=== PATIENT | female | born 1965 | race Caucasian/White ===

== ENCOUNTER 2020-06-27 12:40 | Inpatient (IN) ==
[2020-06-27] MEDS ORDERED: LORazepam 2 MG/4 ML VIAL IV STA (13:01)
[2020-06-27] MEDS ORDERED: MULTI-VITAMIN INFUSION 10 ML, THIAMINE HCL 100 MG, FOLIC ACID 1 MG in SODIUM CHLORIDE 0... IV ONE (13:01)
[2020-06-27 13:38] LABS: Basophils # (auto) 0.01 K/uL (0-0.2); Basophils % (auto) 0.1 %; Eosinophils # (auto) 0.05 K/uL (0-0.5); Eosinophils % (auto) 0.6 %; Hematocrit (blood only) 39.3 % (37-47); Hemoglobin 13.3 g/dL (12.0-16.0); Immature Granulocytes # (auto) 0.02 K/uL (0.00-0.02); Immature Granulocytes % (auto) 0.3 %; Lymphocytes # (auto) 1.66 K/uL (1.2-3.4); Lymphocytes % (auto) 21.4 %; Mean Corpuscular Hemoglobin 34.9 pg (25-34); Mean Corpuscular Hgb Conc 33.8 g/dL (32-36); Mean Corpuscular Volume 103.1 fL (80-100); Mean Platelet Volume 9.8 fL (7.4-10.4); Monocytes # (auto) 0.44 K/uL (0.11-0.59); Monocytes % (auto) 5.7 %; Neutrophils # (auto) 5.56 K/uL (1.4-6.5); Neutrophils % (auto) 71.9 %; Platelet Count 135 K/uL (130-400); RDW Coefficient of Variation 14.2 % (11.5-14.5); RDW Standard Deviation 53.4 fL (36.4-46.3); Red Blood Count 3.81 M/uL (4.2-5.4); White Blood Count 7.74 K/uL (4.8-10.8)
[2020-06-27 13:47] LABS: INR 1.1 (0.9-1.1); Partial Thromboplastin Ratio 0.9; Partial Thromboplastin Time 24.5 Seconds (21.0-31.0); Prothrombin Time 11.7 Seconds (9.0-12.0)
--- NOTE | 2020-06-27 13:49 | XRay Report ---
XR chest 1V portable HISTORY: 54 years-old Female Chest Pain acute atypical chest pain COMPARISON: None TECHNIQUE: Portable AP view of the chest FINDINGS: Cardiomediastinal and hilar silhouettes are within normal limits. There is no pneumothorax, pleural e ffusion, airspace consolidation or overt pulmonary edema. Healed remote angulated mid right clavicula r fracture. Bones of the chest appear grossly intact. IMPRESSION: No acute process. ACT 112: Negative or not required by law. The above report was generated using voice recognition software. It may contain grammatical, syntax o r spelling errors. Electronically signed by: Wilder Leger M.D. 06/27/2020 1:48 PM
[2020-06-27 13:55] LABS: Alanine Aminotransferase 29 U/L (12-78); Albumin Level 3.8 gm/dl (3.4-5.0); Aspartate Aminotransferase 48 U/L (15-37); BUN Creatinine Ratio 12.5 (10-20); Bilirubin Direct 0.5 mg/dl (0-0.2); Blood Urea Nitrogen 10 mg/dl (7-18); Calcium 9.5 mg/dl (8.5-10.1); Carbon Dioxide 22 mmol/L (21-32); Chloride 97 mmol/L (98-107); Creatinine Clr Calc Pharmacy 69.8 ml/min; Est GFR (African American) 94.1; Est GFR (Non-African American) 81.2; Glucose 101 mg/dl (70-99); Lipase 265 U/L (73-393); Magnesium 1.5 mg/dl (1.8-2.4); Potassium 2.6 mmol/L (3.5-5.1); Sodium 132 mmol/L (136-145)
[2020-06-27 14:03] LABS: Albumin Globulin Ratio 0.9 (0.9-2); Alkaline Phosphatase 96 U/L (45-117); Bilirubin,Total 1.7 mg/dl (0.2-1); Creatine Kinase 114 U/L (26-192); Globulin 4.2 gm/dl (2.5-4.0); Phosphorus 2.5 mg/dl (2.5-4.9); Troponin I < 0.015 ng/ml (0-0.045)
[2020-06-27 14:09] LABS: Pregnancy Test, Serum Negative (Negative)
--- NOTE | 2020-06-27 14:11 | CT Scan Report ---
CT head/brain wo con CLINICAL HISTORY: 54 years-old Female with fall ams. Acute head injury status post fall. Acutely alt ered mental status TECHNIQUE: Multiple axial CT images of the head were obtained without contrast. A dose lowering tech nique was utilized adhering to the principles of ALARA. CT DOSE: 537.48 mGy.cm COMPARISON: None. FINDINGS: No acute intracranial hemorrhage, midline shift, intracranial mass, hydrocephalus, territorial ischem ia or abnormal extra-axial collection. Age-related involutional changes with ex vacuo ventriculomegal y. Patchy white matter hypodensities suggest chronic microvascular ischemic disease. The calvarium is intact. The paranasal sinuses, mastoid air cells, and middle ear cavities are clear . IMPRESSION: No acute intracranial abnormality or calvarial fracture. ACT 112: Negative or not required by law. The above report was generated using voice recognition software. It may contain grammatical, syntax o r spelling errors. Electronically signed by: Wilder Leger M.D. 06/27/2020 2:10 PM
--- NOTE | 2020-06-27 14:29 | Emergency Department Note ---
Impression & Plan Alcohol withdrawal seizure, Alcohol withdrawal delirium, acute, hyperactive, Lactic acidosis, Hypomagnesemia, Hypokalemia ED Provider Note NAME: DULCE VELASQUEZ AGE: 54 SEX: F ARRIVES VIA: Walk-In INFORMANT: Patient, ED PROVIDER(S): Santos Medina MD CHIEF COMPLAINT: AMS PLAN: Disposition: Admit MEDICAL DECISION MAKING: Patient is a 54-year-old woman with a past medical history of alcohol abuse who presents emerge department accompanied by her concern for confusion and altered mental status that was new today where he reports they were driving a car and all of a sudden noticed that she was not responding and was foaming at the mouth and so came immediately to emergency department. On arrival the patient is alert and oriented though somewhat confused about why her wanted to bring her here. Therefore she has not had any alcohol for the past several days. They report she usually drinks daily but describes her abuse as 3-5 drinks daily though prior alcohol levels in the system show alcohol blood level of 400s. Denies any recent fevers, chills, cough congestion, nausea, vomit, diarrhea, urinary symptoms. Denies known covid-19 exposures. On arrival the patient is fatigued uncomfortable but no acute distress, afebrile stable vital signs. She is alert and oriented to self and place but again confused about situation. She does have some impaired attention and difficulty following commands but with redirection is successful. She does appear mildly tremulous. She has no focal neurologic deficits. EKG without over acute ischemia. Chest x-ray negative for acute cardiopulmonary process. WBC and platelets within normal limits. H/H within normal limits. Chemistry without metabolic acidosis. Potassium 2.6 and magnesium 1.5 with repletion initiated. AST cellulitic 48 consistent with the patient's history of alcohol abuse. Total bili 1.7 though direct bilirubin 0.5, nonspecific given no nausea vomiting or abdominal pain. Ammonia within normal range. Troponin negative/und etectable. CPK negative. TSH 17 but free T4 within normal limits. Lactic acid was 4.5 which further supports likely alcohol withdrawal seizure. Given her mild confusion and tremulousness also likely is exhibiting early delirium tremens. She was given initial dose of 2 mg of Ativan and banana bag. CT the head negative for acute process. Given the patient's DTs and alcohol withdrawal seizures recent admit the patient for further management. The patient and at the bedside are agreeable with this. Case was discussed with Kevin Miranda PA-C with Kevin Mcdonald. Triage Nursing notes reviewed and agree them. Additional history obtained from . Prior medical records reviewed Vital Signs: reviewed and remarkable for no significant abnormalities Differential diagnosis: Epilepsy, infection, hypoglycemia, electrolyte abnormalities, cardiac sources, intracerebral event, trauma, toxicologic, neurologic, syncope, as well as other pathologies. ER treatment provided: See below. Diagnostics interpreted by me: ECG: NSR, 92 bpm, no ectopy, no overt ST elevation or depression, QTC 514, QRS 78. Cardiac Monitoring: An order for continuous cardiac monitoring was placed and demonstrated NSR, 92 bpm, no ectopy. Laboratory studies: See below Imaging studies: XR chest 1V portable HISTORY: 54 years-old Female Chest Pain acute atypical chest pain COMPARISON: None TECHNIQUE: Portable AP view of the chest FINDINGS: Cardiomediastinal and hilar silhouettes are within normal limits. There is no pneumothorax, pleural effusion, airspace consolidation or overt pulmonary edema. Healed remote angulated mid right clavicular fracture. Bones of the chest appear grossly intact. IMPRESSION: No acute process. -- CT head/brain wo con CLINICAL HISTORY: 54 years-old Female with fall ams. Acute head injury status post fall. Acutely altered mental status TECHNIQUE: Multiple axial CT images of the head were obtained without contrast. A dose lowering technique was utilized adhering to the principles of ALARA. CT DOSE: 537.48 mGy.cm COMPARISON: None. FINDINGS: No acute intracranial hemorrhage, midline shift, intracranial mass, hydrocephalus, territorial ischemia or abnormal extra-axial collection. Age-rela jayson involutional changes with ex vacuo ventriculomegaly. Patchy white matter hypodensities suggest chronic microvascular ischemic disease. The calvarium is intact. The paranasal sinuses, mastoid air cells, and middle ear cavities are clear. IMPRESSION: No acute intracranial abnormality or calvarial fracture. ACT 112: Negative or not required by law. Consultation(s): Case was discussed with Kevin Miranda PA-C with Kevin Mcdonald. HPI: Patient is a 54-year-old woman with a past medical history of alcohol abuse who presents emerge department accompanied by her concern for confusion and altered mental status that was new today where he reports they were driving a car and all of a sudden noticed that she was not responding and was foaming at the mouth and so came immediately to emergency department. On arrival the patient is alert and oriented though somewhat confused about why her wanted to bring her here. Therefore she has not had any alcohol for the past several days. They report she usually drinks daily but describes her abuse as 3-5 drinks daily though prior alcohol levels in the system show alcohol blood level of 400s. Denies any recent fevers, chills, cough congestion, nausea, vomit, diarrhea, urinary symptoms. Denies known Covid-19 exposures. ROS: See above HPI for pertinent positives & negatives. A total of 10 systems reviewed and were otherwise negative. PAST MEDICAL HISTORY:See Below PAST SURGICAL HISTORY:See Below FAMILY HISTORY:See Below SOCIAL HISTORY:See Below HOME MEDICATIONS:See Below ALLERGIES:See Below VITALS:See Below PHYSICAL EXAMINATION: GENERAL: Awake, alert, anxious appearing, in no distress HENT: Normocephalic, atraumatic. Oropharynx with dry mucous membranes and otherwise unremarkable. . EYES: Normal conjunctiva. Sclera non-icteric. EOMI. No nystamgus. PEARRL. NECK: Supple. No nuchal rigidity. FROM. No JVD. RESPIRATORY: Clear to auscultation. CARDIAC: Regular rate, normal rhythm. Extremities warm and well perfused. Pulses equal. ABDOMEN: Soft, non-distended. No tenderness to palpation. No rebound or guarding. No masses. RECTAL: Deferred. MUSCULOSKELETAL: Chest examination reveals no tenderness. The back is symmetrical on inspection without obvious abnormality. There is no CVA tender ness to palpation. No joint edema. LOWER EXTREMITIES: Calves are equal size bilaterally and non-tender. No edema. No discoloration. NEURO: No focal sensory or motor deficits noted. Tremulous. No overt asterixis. SKIN: No rash or jaundice noted. ED COURSE: Critical Care: I have personally spent greater than 55 minutes of critical care time in the direct management of this patient. This includes bedside care, interpretation of diagnostic studies, and testing, discussion with consultants, patient, and family members, and other required patient management activities. This 55 minutes is in excess of all separately billable procedures. Santos Medina MD Past Med/Surg History Medical History Alcohol use disorder Hypertension Inflammatory polyarthritis Surgical History S/P cholecystectomy Family History Other Cancer Heart disease Social History Smoking Status: Former smoker Hx Alcohol Use: Yes Alcohol type: hard liquor Alcohol Intake Frequency: 4 or More x per/Week Hx Substance Use: No Preferred Language: Georgian Communication Ability: Effective Breadman Required: No Beliefs That Will Affect Care: None Current Living Situation: Spouse Other Information That Helps Us Care for You: No Feels Safe at Home: Yes Safety Concerns: Feels Safe At This Time Assistive Devices: None Allergies Allergies Allergy/AdvReac Type Severity Reaction Status Date / Time Influenza Virus Vaccines Allergy Severe Hives Verified 06/27/20 14:20 latex Allergy Intermediate rash/hives Unverified 06/27/20 14:20 NEOSPORIN AdvReac Severe Hives Uncoded 06/27/20 14:20 Home Meds Home Medications Medication Instructions Recorded Confirmed cyanocobalamin (vitamin B-12) 100 mcg PO DAILY 06/27/20 06/27/20 folic acid 1 mg PO DAILY 06/27/20 06/27/20 multivitamin 1 tab PO DAILY 06/27/20 06/27/20 Results & Data (ED) Vital Signs Vital Signs - 24 hr 06/27/20 12:53 06/27/20 13:00 06/27/20 13:07 Temperature 36 C L Temperature Source Temporal Artery Scan Pulse Rate 102 H 87 Pulse Rate from SpO2 Sensor 87 Respiratory Rate 20 Blood Pressure 157/103 H 145/77 H Blood Pressure Mean 121 96 Pulse Oximetry 100 97 97 Oxygen Delivery Method Room Air Room Air Room Air Sepsis Recent Fever Within 48 Hours No Sepsis New/Unexplained Change in Mental Status No Sepsis Action Taken by Nursing No Action Required 06/27/20 13:30 06/27/20 14:00 06/27/20 14:30 Temperature Temperature Source Pulse Rate 82 72 80 Pulse Rate from SpO2 Sensor 83 72 Respiratory Rate 18 Blood Pressure 131/85 132/86 Blood Pressure Mean 113 107 Pulse Oximetry 97 99 Oxygen Delivery Method Room Air Room Air Sepsis Recent Fever Within 48 Hours Sepsis New/Unexplained Change in Mental Status Sepsis Action Taken by Nursing 06/27/20 14:31 06/27/20 14:32 Temperature Temperature Source Pulse Rate 74 73 Pulse Rate from SpO2 Sensor Respiratory Rate Blood Pressure 109/77 Blood Pressure Mean 80 Pulse Oximetry Oxygen Delivery Method Sepsis Recent Fever Within 48 Hours Sepsis New/Unexplained Change in Mental Status Sepsis Action Taken by Nursing Laboratory Data Attestation: I reviewed the patient's lab results. Result diagrams: 06/27/20 13:14 06/27/20 18:00 Lab Results 06/27/20 06/27/20 06/27/20 Range/Units 13:14 13:14 13:14 WBC 7.74 (4.8-10.8) K/uL RBC 3.81 L (4.2-5.4) M/uL Hgb 13.3 (12.0-16.0) g/dL Hct 39.3 (37-47) % MCV 103.1 H (80-100) fL MCH 34.9 H (25-34) pg MCHC 33.8 (32-36) g/dL RDW Std Deviation 53.4 H (36.4-46.3) fL RDW Coeff of Tino 14.2 (11.5-14.5) % Plt Count 135 (130-400) K/uL MPV 9.8 (7.4-10.4) fL Immature Gran % (Auto) 0.3 % Neut % (Auto) 71.9 % Lymph % (Auto) 21.4 % Bourbon % (Auto) 5.7 % Eos % (Auto) 0.6 % Baso % (Auto) 0.1 % Neut # (Auto) 5.56 (1.4-6.5) K/uL Lymph # (Auto) 1.66 (1.2-3.4) K/uL Bourbon # (Auto) 0.44 (0.11-0.59) K/uL Eos # (Auto) 0.05 (0-0.5) K/uL Baso # (Auto) 0.01 (0-0.2) K/uL Immature Gran # (Auto) 0.02 (0.00-0.02) K/uL PT 11.7 (9.0-12.0) Seconds INR 1.1 (0.9-1.1) APTT 24.5 (21.0-31.0) Seconds PTT Ratio 0.9 Sodium 132 L (136-145) mmol/L Potassium 2.6 L (3.5-5.1) mmol/L Chloride 97 L (98-107) mmol/L Carbon Dioxide 22 (21-32) mmol/L Anion Gap 13.0 H (3-11) BUN 10 (7-18) mg/dl Creatinine 0.81 (0.6-1.2) mg/dl Est Cr Clr Drug Dosing 69.8 ml/min Est GFR ( Amer) 94.1 Est GFR (Non-Af Amer) 81.2 BUN/Creatinine Ratio 12.5 (10-20) Glucose 101 H (70-99) mg/dl Lactate (0.4-2.0) mmol/L Calcium 9.5 (8.5-10.1) mg/dl Phosphorus 2.5 (2.5-4.9) mg/dl Magnesium 1.5 L (1.8-2.4) mg/dl Total Bilirubin 1.7 H (0.2-1) mg/dl Direct Bilirubin 0.5 H (0-0.2) mg/dl AST 48 H (15-37) U/L ALT 29 (12-78) U/L Alkaline Phosphatase 96 (45-117) U/L Ammonia (11-32) umol/L Total Creatine Kinase 114 (26-192) U/L Troponin I < 0.015 (0-0.045) ng/ml Total Protein 8.0 (6.4-8.2) gm/dl Albumin 3.8 (3.4-5.0) gm/dl Globulin 4.2 H (2.5-4.0) gm/dl Albumin/Globulin Ratio 0.9 (0.9-2) Lipase 265 (73-393) U/L TSH 17.100 H (0.300-4.500) uIu/ml Free T4 1.00 (0.8-1.6) ng/dl Prolactin ng/ml HCG, Qual (Negative) Ethyl Alcohol mg/dL (0-3) mg/dl 06/27/20 06/27/20 06/27/20 Range/Units 13:14 13:14 13:14 WBC (4.8-10.8) K/uL RBC (4.2-5.4) M/uL Hgb (12.0-16.0) g/dL Hct (37-47) % MCV (80-100) fL MCH (25-34) pg MCHC (32-36) g/dL RDW Std Deviation (36.4-46.3) fL RDW Coeff of Tino (11.5-14.5) % Plt Count (130-400) K/uL MPV (7.4-10.4) fL Immature Gran % (Auto) % Neut % (Auto) % Lymph % (Auto) % Bourbon % (Auto) % Eos % (Auto) % Baso % (Auto) % Neut # (Auto) (1.4-6.5) K/uL Lymph # (Auto) (1.2-3.4) K/uL Bourbon # (Auto) (0.11-0.59) K/uL Eos # (Auto) (0-0.5) K/uL Baso # (Auto) (0-0.2) K/uL Immature Gran # (Auto) (0.00-0.02) K/uL PT (9.0-12.0) Seconds INR (0.9-1.1) APTT (21.0-31.0) Seconds PTT Ratio Sodium (136-145) mmol/L Potassium (3.5-5.1) mmol/L Chloride (98-107) mmol/L Carbon Dioxide (21-32) mmol/L Anion Gap (3-11) BUN (7-18) mg/dl Creatinine (0.6-1.2) mg/dl Est Cr Clr Drug Dosing ml/min Est GFR ( Amer) Est GFR (Non-Af Amer) BUN/Creatinine Ratio (10-20) Glucose (70-99) mg/dl Lactate 5.6 H* (0.4-2.0) mmol/L Calcium (8.5-10.1) mg/dl Phosphorus (2.5-4.9) mg/dl Magnesium (1.8-2.4) mg/dl Total Bilirubin (0.2-1) mg/dl Direct Bilirubin (0-0.2) mg/dl AST (15-37) U/L ALT (12-78) U/L Alkaline Phosphatase (45-117) U/L Ammonia 25.8 (11-32) umol/L Total Creatine Kinase (26-192) U/L Troponin I (0-0.045) ng/ml Total Protein (6.4-8.2) gm/dl Albumin (3.4-5.0) gm/dl Globulin (2.5-4.0) gm/dl Albumin/Globulin Ratio (0.9-2) Lipase (73-393) U/L TSH (0.300-4.500) uIu/ml Free T4 (0.8-1.6) ng/dl Prolactin ng/ml HCG, Qual Negative (Negative) Ethyl Alcohol mg/dL (0-3) mg/dl 06/27/20 06/27/20 06/27/20 Range/Units 13:14 13:14 14:42 WBC (4.8-10.8) K/uL RBC (4.2-5.4) M/uL Hgb (12.0-16.0) g/dL Hct (37-47) % MCV (80-100) fL MCH (25-34) pg MCHC (32-36) g/dL RDW Std Deviation (36.4-46.3) fL RDW Coeff of Tino (11.5-14.5) % Plt Count (130-400) K/uL MPV (7.4-10.4) fL Immature Gran % (Auto) % Neut % (Auto) % Lymph % (Auto) % Bourbon % (Auto) % Eos % (Auto) % Baso % (Auto) % Neut # (Auto) (1.4-6.5) K/uL Lymph # (Auto) (1.2-3.4) K/uL Bourbon # (Auto) (0.11-0.59) K/uL Eos # (Auto) (0-0.5) K/uL Baso # (Auto) (0-0.2) K/uL Immature Gran # (Auto) (0.00-0.02) K/uL PT (9.0-12.0) Seconds INR (0.9-1.1) APTT (21.0-31.0) Seconds PTT Ratio Sodium (136-145) mmol/L Potassium (3.5-5.1) mmol/L Chloride (98-107) mmol/L Carbon Dioxide (21-32) mmol/L Anion Gap (3-11) BUN (7-18) mg/dl Creatinine (0.6-1.2) mg/dl Est Cr Clr Drug Dosing ml/min Est GFR ( Amer) Est GFR (Non-Af Amer) BUN/Creatinine Ratio (10-20) Glucose (70-99) mg/dl Lactate (0.4-2.0) mmol/L Calcium (8.5-10.1) mg/dl Phosphorus (2.5-4.9) mg/dl Magnesium (1.8-2.4) mg/dl Total Bilirubin (0.2-1) mg/dl Direct Bilirubin (0-0.2) mg/dl AST (15-37) U/L ALT (12-78) U/L Alkaline Phosphatase (45-117) U/L Ammonia (11-32) umol/L Total Creatine Kinase 117 (26-192) U/L Troponin I (0-0.045) ng/ml Total Protein (6.4-8.2) gm/dl Albumin (3.4-5.0) gm/dl Globulin (2.5-4.0) gm/dl Albumin/Globulin Ratio (0.9-2) Lipase (73-393) U/L TSH (0.300-4.500) uIu/ml Free T4 (0.8-1.6) ng/dl Prolactin 218.10 ng/ml HCG, Qual (Negative) Ethyl Alcohol mg/dL < 3.0 (0-3) mg/dl Administered Medications Enoxaparin Sodium (Enoxaparin Inj 40 Mg/0.4 Ml Syr) 40 mg SQ Q24H SARAH Stop: 07/27/20 17:59 Last Admin: 06/27/20 18:07 Dose: 40 mg Documented by: [id number] Gabapentin (Gabapentin 600 Mg Tab) 600 mg PO 0600,2200 SARAH Stop: 06/28/20 06:01 Last Admin: 06/27/20 23:34 Dose: 600 mg Documented by: [id number] Potassium Chloride 20 meq/ (Sodium Chloride) 1,010 mls @ 125 mls/hr IV .Q8H5M SARAH Stop: 06/28/20 09:44 Last Admin: 06/27/20 18:33 Dose: 125 mls/hr Documented by: [id number] Thiamine HCl (Thiamine Hcl 100 Mg Tab) 100 mg PO QAM SARAH Stop: 07/27/20 17:34 Last Admin: 06/27/20 18:07 Dose: 100 mg Documented by: [id number] Discontinued Medications Gabapentin (Gabapentin 600 Mg Tab) 1,200 mg PO NOW ONE Stop: 06/27/20 15:17 Last Admin: 06/27/20 16:28 Dose: 1,200 mg Documented by: [id number] Multivitamins 10 ml/ Thiamine HCl 100 mg/ Folic Acid 1 mg/Sodium Chloride 1,011.2 mls @ 1,011.2 mls/hr IV .Q1H ONE Stop: 06/27/20 14:00 Last Infusion: 06/27/20 14:38 Dose: 0 mls/hr Documented by: [id number] Admin: 06/27/20 13:37 Dose: 1,011.2 mls/hr Documented by: [id number] Lorazepam (Ativan) 2 mg in 4 mls @ 4 mls/min IV NOW STA Stop: 06/27/20 13:02 Last Admin: 06/27/20 13:26 Dose: 4 mls/min Documented by: [id number] Potassium Chloride (K Miguel Angel / Wtr) 10 meq in 100 mls @ 100 mls/hr IV Q1H SARAH Stop: 06/27/20 16:29 Last Infusion: 06/27/20 21:07 Dose: 0 mls/hr Documented by: [id number] Admin: 06/27/20 15:48 Dose: 100 mls/hr Documented by: [id number] Infusion: 06/27/20 15:48 Dose: 100 mls/hr Documented by: [id number] Admin: 06/27/20 14:52 Dose: 100 mls/hr Documented by: [id number] Magnesium Sulfate/Dextrose (Magnesium Sulfate / D5w) 1 gm in 100 mls @ 200 mls/hr IV Q30M SARAH Stop: 06/27/20 15:18 Last Infusion: 06/27/20 16:29 Dose: 0 mls/hr Documented by: [id number] Admin: 06/27/20 15:48 Dose: 200 mls/hr Documented by: [id number] Infusion: 06/27/20 15:25 Dose: 0 mls/hr Documented by: [id number] Admin: 06/27/20 14:52 Dose: 200 mls/hr Documented by: [id number] Sodium Chloride (Nss 1000ml) 1,000 mls @ 999 mls/hr IV .Q1H1M ONE Stop: 06/27/20 15:30 Last Infusion: 06/27/20 15:59 Dose: 0 mls/hr Documented by: [id number] Admin: 06/27/20 14:52 Dose: 999 mls/hr Documented by: [id number] Potassium Chloride (K Miguel Angel / Wtr) 10 meq in 100 mls @ 100 mls/hr IV Q1H SARAH Stop: 06/27/20 18:14 Last Infusion: 06/27/20 21:07 Dose: 0 mls/hr Documented by: [id number] Admin: 06/27/20 19:38 Dose: 100 mls/hr Documented by: [id number] Infusion: 06/27/20 19:06 Dose: 100 mls/hr Documented by: [id number] Admin: 06/27/20 18:06 Dose: 100 mls/hr Documented by: [id number] Potassium Chloride (Potassium Chloride Crtab 20 Meq Tabcr) 40 meq PO ONE ONE Stop: 06/27/20 16:16 Last Admin: 06/27/20 16:29 Dose: 40 meq Documented by: [id number] Potassium Chloride (Potassium Chloride Crtab 20 Meq Tabcr) 40 meq PO NOW STA Stop: 06/27/20 23:02 Last Admin: 06/27/20 23:34 Dose: 40 meq Documented by: [id number] Discharge Plan Visit Data Chief Complaint: Illness Stated Complaint: STROKE SX ED Provider: Santos Medina Discharge Problem: Alcohol withdrawal seizure, Alcohol withdrawal delirium, acute, hyperactive, Lactic acidosis, Hypomagnesemia, Hypokalemia Patient Disposition: Admitted As Inpatient Discharge Instructions Interventions: ED Discharge Assessment Last Done: 06/27/20 16:41
[2020-06-27] MEDS ORDERED: SODIUM CHLORIDE 0.9% 1000ML 1,000 ML IV ONE (14:30)
[2020-06-27] MEDS: POTASSIUM CHLORIDE / WTR 10 MEQ/100 ML PLCT IV SCH ×4 (14:52→19:38)
[2020-06-27] MEDS: MAGNESIUM SULFATE / D5W 1 GM/100 ML BAG IV SCH ×2 (14:52→15:48)
--- NOTE | 2020-06-27 15:01 | History & Physical Report ---
Date of Service June 27, 2020 Assessment & Plan (1) Alcohol withdrawal delirium, acute, hyperactive: (2) Alcohol withdrawal seizure: This is a 54yo F with a PMH of alcohol use disorder, HTN, inflammatory polyarthritis and other medical problems listed below who presents with AMS and possible seizure prior to arrival and was found to be in alcohol withdrawal. 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 Lactic acid elevated at 5.6. Prolactin and CK pending -Improved after 2mg Ativan in ED. Given banana bag -AWSS protocol, gabapentin, active withdrawal ativan PRN per protocol -No seizure history -brain MRI w/wo ordered to r/o structural causes, EEG, routine neuro consult -Seizure precautions, monitor in PCU (3) Lactic acidosis: Initial lactic acid 5.6 in setting of likely alcohol withdrawal seizure -Trend lactic acid. Continue IV fluids (4) Hypomagnesemia: Initial magnesium 1.5. Replaced with 2 g in ED. Rechecking magnesium at 1800 (5) Hypokalemia: Initial potassium 2.6. Replacing. Rechecking potassium at 1800 (6) Alcohol use disorder: History of significant alcohol use. Discharge planning in case patient interested in any rehabilitation (7) Hypertension: Normotensive. No longer taking home antihypertensive due to weight loss and normal blood pressure per home readings (8) Inflammatory polyarthritis: Previously on methotrexate but stopped medication a few months ago. Follows with [facility] rheum DVT Ppx: SQ lovenox Code status: FULL PCP: Saleem Dispo: Admitted to PCU. Discharge planning ordered. Patient seen in collaboration with Dr. Clark. Please see addendum. History of Present Illness Chief Complaint: AMS, seizure Primary Care Provider: Elio Monge DO This is a 54yo F with a PMH of alcohol use disorder, HTN, inflammatory polyarthritis and other medical problems listed below who presents with AMS and possible seizure prior to arrival. Patient was in normal state of health today and last remembers stumbling going down front steps on the way to doing errands. While in the car with running errands, patient became unresponsive and noticed foaming at the mouth. Afterwards, patient was confused and combative. He was concern for stroke and brought her to ED for further evaluation. Patient drinks a significant amount, endorsing 3 large vodka drinks each night. Has not had anything to drink for 3 days due to trying to cut back. Does admit to tremoring if she does not drink alcohol. Denies any history of alcohol withdrawal seizures or delirium. No history of epilepsy. Is only taking in a multivitamin at home in terms of medication. Denies any fever, chills, lightheadedness, headache, chest pain, palpitations, shortness of breath, nausea, vomiting, abdominal pain, dysuria or diarrhea. Has been constipated lately. States her p.o. intake is small. Endorses losing approximately 80 pounds over the past few years. Allergies Allergy/AdvReac Type Severity Reaction Status Date / Time Influenza Virus Vaccines Allergy Severe Hives Verified 06/27/20 14:20 latex Allergy Intermediate rash/hives Unverified 06/27/20 14:20 NEOSPORIN AdvReac Severe Hives Uncoded 06/27/20 14:20 Home Medications Medication Instructions Recorded Confirmed Type cyanocobalamin (vitamin B-12) 100 mcg PO DAILY 06/27/20 06/27/20 History folic acid 1 mg PO DAILY 06/27/20 06/27/20 History multivitamin 1 tab PO DAILY 06/27/20 06/27/20 History Past Med/Surg History Medical History Alcohol use disorder Hypertension Inflammatory polyarthritis Surgical History S/P cholecystectomy Family History Other Cancer Heart disease Social History Smoking Status: Former smoker Hx Alcohol Use: Yes Alcohol type: hard liquor Alcohol Intake Frequency: 4 or More x per/Week Hx Substance Use: No Preferred Language: Japanese Communication Ability: Effective 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 Physical Exam Physical Exam: General Appearance: vitals as above, NAD, sitting up in bed, pleasant but easily distracted, poorly groomed, fine tremors in hands Head: normocephalic, atraumatic Eyes: normal inspection, PERRL, conjunctivae normal, anicteric sclerae ENT: external ear and nose normal, oropharynx normal Neck: normal visual inspection, trachea midline, no thyromegaly Respiratory: normal respiratory effort, lungs clear to auscultation, no wheeze, rales, rhonchi. No accessory muscle use Cardiovascular: regular rate, rhythm, no murmur appreciated, normal peripheral pulses, no BLE edema. Vessels: no JVD Chest: normal inspection of chest Abdomen/GI: normal bowel sounds, soft, nontender, no hepatosplenomegaly Extremities/Musculoskeletal: no cyanosis or clubbing, extremities motor strength 5/5 Neurologic: PERRL, EOMI, accommodation nl, no face palsy, no dysarthria, CN's II-XI intact bilaterally and moves all extremities Psychiatric: A+Ox4. Easily distracted but redirects Skin: no rashes, normal color, warm/dry Results & Data Results & Data ([facility]) Vital Signs (Past 12 Hours) Vital Signs Temp Pulse Resp BP Pulse Ox 06/27/20 14:31 74 109/77 06/27/20 14:30 80 06/27/20 14:00 72 132/86 99 06/27/20 13:30 82 18 131/85 97 06/27/20 13:07 97 06/27/20 13:00 87 145/77 H 97 06/27/20 12:53 36 C L 102 H 20 157/103 H 100 Laboratory Results Short CBC 06/27/20 06/27/20 Range/Units 13:14 13:14 WBC 7.74 (4.8-10.8) K/uL Hgb 13.3 (12.0-16.0) g/dL Hct 39.3 (37-47) % Plt Count 135 (130-400) K/uL AST 48 H (15-37) U/L TSH 17.100 H (0.300-4.500) uIu/ml BMP 06/27/20 13:14 Sodium 132 L Potassium 2.6 L Chloride 97 L Carbon Dioxide 22 BUN 10 Creatinine 0.81 Glucose 101 H Calcium 9.5 Cardiac Enzymes 06/27/20 Range/Units 13:14 Total Creatine Kinase 114 (26-192) U/L Troponin I < 0.015 (0-0.045) ng/ml Liver Function 06/27/20 Range/Units 13:14 Total Bilirubin 1.7 H (0.2-1) mg/dl Direct Bilirubin 0.5 H (0-0.2) mg/dl AST 48 H (15-37) U/L ALT 29 (12-78) U/L Alkaline Phosphatase 96 (45-117) U/L Albumin 3.8 (3.4-5.0) gm/dl Diagnostic Findings CT head: IMPRESSION: No acute intracranial abnormality or calvarial fracture. CXR: IMPRESSION: No acute process. ECG Rhythm: normal sinus Findings: + prolonged QT Code Status & VTE Plan VTE Prophylaxis Plan VTE Prophylaxis will be ordered: Yes Supervising Physician Co-Signing Physician Notes Pt seen and examined by me, care coordinated with Hollie Gaytan PA-C, pls refer to her note above for further detail. Pt is a 54yo F with hx of alcohol use disorder, HTN, inflammatory polyarthritis and other medical problems who presents with AMS and possible seizure prior to arrival. No prior history of epilepsy. Has not had any alcoholic drink for 3 days as she was trying to cut back on drinking. Does admit to tremoring if she does not drink alcohol. Pt is currently laying in bed, in NAD. She appears weak and tired, she is very poorly groomed. Still confused about events that led her to coming to the ED. Pt's at the bedside and providing hx. Lungs are clear to auscultation. Heart sounds regular. Abdomen soft, nontender, nondistended. Moves extremities spontaneously. no sensory loss noted. No vision changes on my phys. exam. +Mild tremor. Speech slow. In the ED lactic acid elevated at 5.6. Received banana bag and 2 mg of IV ativan, IVF. CT brain unremarkable. Will cont. etoh withdrawal protocol w/ gabapentin, ativan prn. thiamine, B12, folic acid. MRI brain and neuro consult. Maria R Clark MD
[2020-06-27 15:12] LABS: Appearance Urine Clear (Clear); Bilirubin Urine Negative (Negative); Blood Urine Negative (Negative); Color Urine Yellow; Glucose Urine UA Negative (Negative); Ketones Urine Trace (Negative); Leukocyte Esterase Urine Negative (Negative); Nitrite Urine Negative (Negative); Protein Urine Negative (Negative); Specific Gravity Urine 1.009 (1.000-1.030); Urobilinogen Urine Negative (Negative); pH Urine 6.5 (4.5-7.5)
[2020-06-27] MEDS ORDERED: GABAPENTIN 600 MG TAB PO ONE (15:16)
[2020-06-27] MEDS ORDERED: LORazepam 2 MG/4 ML VIAL IV PRN (15:16)
[2020-06-27] MEDS ORDERED: ATIVAN IV ALCOHOL WITHDRAWL IV PRN (15:16)
[2020-06-27] MEDS ORDERED: LORazepam 1 MG/2 ML VIAL IV PRN (15:16)
[2020-06-27] MEDS ORDERED: LORazepam 3 MG/6 ML VIAL IV PRN (15:16)
[2020-06-27] MEDS ORDERED: POTASSIUM CHLORIDE CRTAB 20 MEQ TABCR PO ONE (16:15)
[2020-06-27] MEDS ORDERED: ACETAMINOPHEN 325 MG TAB PO PRN (17:35)
[2020-06-27] MEDS ORDERED: POLYETHYLENE (MIRALAX) 17 GM PACK PO PRN (17:35)
[2020-06-27] MEDS ORDERED: GABAPENTIN 1200MG ALCOHOL WITHDRAWAL LOAD PO STA (17:35)
[2020-06-27] MEDS: THIAMINE HCL 100 MG TAB PO SCH (18:07)
[2020-06-27] MEDS: ENOXAPARIN INJ 40 MG/0.4 ML SYR SQ SCH (18:07)
[2020-06-27] MEDS: POTASSIUM CHLORIDE 20 MEQ in SODIUM CHLORIDE 0.9% 1000ML 1,000 ML IV SCH (18:33)
[2020-06-27 18:42] LABS: BUN Creatinine Ratio 15.4 (10-20); Creatinine Clr Calc Pharmacy 152.8 ml/min; Est GFR (African American) 138.5; Est GFR (Non-African American) 119.5; Magnesium 2.3 mg/dl (1.8-2.4); Potassium 3.1 mmol/L (3.5-5.1)
[2020-06-27] MEDS ORDERED: POTASSIUM CHLORIDE CRTAB 20 MEQ TABCR PO STA (23:01)
[2020-06-27] MEDS: GABAPENTIN 600 MG TAB PO SCH (23:34)
[2020-06-28] MEDS: POTASSIUM CHLORIDE 20 MEQ in SODIUM CHLORIDE 0.9% 1000ML 1,000 ML IV SCH (05:24)
[2020-06-28 07:43] LABS: Hematocrit (blood only) 34.4 % (37-47); Hemoglobin 11.4 g/dL (12.0-16.0); Mean Corpuscular Hgb Conc 33.1 g/dL (32-36); Mean Corpuscular Volume 105.5 fL (80-100); Mean Platelet Volume 10.3 fL (7.4-10.4); Platelet Count 108 K/uL (130-400); RDW Coefficient of Variation 14.4 % (11.5-14.5); RDW Standard Deviation 55.9 fL (36.4-46.3); Red Blood Count 3.26 M/uL (4.2-5.4); White Blood Count 4.72 K/uL (4.8-10.8)
[2020-06-28] MEDS: THIAMINE HCL 100 MG TAB PO SCH (07:56)
[2020-06-28] MEDS: MULTIVITAMIN TAB PO SCH (07:56)
[2020-06-28] MEDS: GABAPENTIN 600 MG TAB PO SCH ×3 (07:57→23:34)
[2020-06-28] MEDS: FOLIC ACID 1 MG TAB PO SCH (07:57)
[2020-06-28 08:10] LABS: BUN Creatinine Ratio 10.5 (10-20); Calcium 8.3 mg/dl (8.5-10.1); Creatinine Clr Calc Pharmacy 171.3 ml/min; Est GFR (African American) 143.8; Magnesium 1.8 mg/dl (1.8-2.4)
[2020-06-28] MEDS ORDERED: CYANOCOBALAMIN (VITAMIN B-12) 100 MCG TABLET PO SCH (09:00)
--- NOTE | 2020-06-28 09:23 | Hospitalist Progress Note ---
Date of Service June 28, 2020 Assessment & Plan (1) Alcohol withdrawal delirium, acute, hyperactive: (2) Alcohol withdrawal seizure: This is a 54yo F with a PMH of alcohol use disorder, HTN, inflammatory polyarthritis and other medical problems listed below who presents with AMS and possible seizure prior to arrival and was found to be in alcohol withdrawal. -Possible seizure [employer] in setting of alcohol withdrawal -No etoh for 3 days, etoh level <3. Lactic acid elevated at 5.6. Prolactin elevated at 218, CK 117 -Improved after 2mg Ativan in ED. Given banana bag -AWSS protocol, gabapentin, active withdrawal ativan PRN per protocol -No seizure history -brain MRI w/wo ordered to r/o structural causes - No acute intracranial findings, No evidence of intracranial mass, No evidence of acute or subacute infarction, Incidental right frontal developmental venous anomaly. EEG ordered - plan for EEG tmrw (06/29/2020) -Neurology consulted -Seizure precautions, monitor in PCU -Will notify DMV about seizure, pt not to drive for 6 months (3) Lactic acidosis: Initial lactic acid 5.6 in setting of likely alcohol withdrawal seizure - repeat lactic acid 1.5, received IVF (4) Hypomagnesemia: Initial magnesium 1.5 on admission - replete and monitor (5) Hypokalemia: Initial potassium 2.6 on admission - replete and monitor (6) Alcohol use disorder: History of significant alcohol use. Discharge planning in case patient interested in any rehabilitation (7) Hypertension: Normotensive. No longer taking home antihypertensive due to weight loss and normal blood pressure per home readings (8) Inflammatory polyarthritis: Previously on methotrexate but stopped medication a few months ago. Follows with [facility] rheum DVT Ppx: SQ lovenox Code status: FULL PCP: Saleem Dispo: Admitted to PCU. Discharge planning ordered. Admission and Anticipated Discharge Date Admission Date: June 27, 2020 Subjective Pt seen in follow up of AMS, likely d/t etoh withdrawal seizure. Pt had an uneventful night, currently laying in bed in NAD. Reports no complaints at this time. MRI obtained - no acute/ subacute stroke, plan for EEG tmrw. Seen by neurology. Review of Systems Review of Systems: All systems reviewed & are unremarkable except as noted in HPI & below Constitutional: no fever and no chills Respiratory: no cough and no dyspnea Cardiovascular: no chest pain and no palpitations Gastrointestinal: no abdominal pain, no nausea and no vomiting Physical Exam Physical Exam: General Appearance: vitals as above, NAD, laying in bed, poorly groomed Head: normocephalic, atraumatic Eyes: normal inspection, PERRL, EOMI, conjunctivae normal, anicteric sclerae ENT: external ear and nose normal, oropharynx normal Neck: normal visual inspection, trachea midline, no thyromegaly Respiratory: normal respiratory effort, lungs clear to auscultation, no wheeze, rales, rhonchi. No accessory muscle use Cardiovascular: regular rate, rhythm, no murmur appreciated, normal peripheral pulses, no BLE edema. Vessels: no JVD Chest: normal inspection of chest Abdomen/GI: normal bowel sounds, soft, nontender Extremities/Musculoskeletal: no cyanosis or clubbing, extremities motor strength 5/5 Neurologic: PERRL, EOMI, no face palsy, no dysarthria, CN's II-XI intact bilaterally and moves all extremities Psychiatric: A+Ox4. Skin: no rashes, normal color, warm/dry Results & Data Results & Data ([facility]) Vital Signs (Past 12 Hours) Vital Signs Temp Pulse Resp BP Pulse Ox 06/28/20 07:44 37.6 C H 88 16 123/79 98 06/28/20 03:43 36.7 C 93 H 18 129/78 99 06/27/20 23:44 37.1 C 85 18 154/89 H 96 Laboratory Results 06/28/20 06/28/20 06/27/20 Range/Units 07:10 07:10 Unknown WBC 4.72 L (4.8-10.8) K/uL RBC 3.26 L (4.2-5.4) M/uL Hgb 11.4 L (12.0-16.0) g/dL Hct 34.4 L (37-47) % MCV 105.5 H (80-100) fL MCH 35.0 H (25-34) pg MCHC 33.1 (32-36) g/dL RDW Std Deviation 55.9 H (36.4-46.3) fL RDW Coeff of Tino 14.4 (11.5-14.5) % Plt Count 108 L (130-400) K/uL MPV 10.3 (7.4-10.4) fL Immature Gran % (Auto) % Neut % (Auto) % Lymph % (Auto) % [place] % (Auto) % Eos % (Auto) % Baso % (Auto) % Neut # (Auto) (1.4-6.5) K/uL Lymph # (Auto) (1.2-3.4) K/uL [place] # (Auto) (0.11-0.59) K/uL Eos # (Auto) (0-0.5) K/uL Baso # (Auto) (0-0.2) K/uL Immature Gran # (Auto) (0.00-0.02) K/uL PT (9.0-12.0) Seconds INR (0.9-1.1) APTT (21.0-31.0) Seconds PTT Ratio Sodium 138 (136-145) mmol/L Potassium 4.0 D (3.5-5.1) mmol/L Chloride 108 H (98-107) mmol/L Carbon Dioxide 21 (21-32) mmol/L Anion Gap 9.0 (3-11) BUN 4 L (7-18) mg/dl Creatinine 0.33 L (0.6-1.2) mg/dl Est Cr Clr Drug Dosing 171.3 ml/min Est GFR ( Amer) 143.8 Est GFR (Non-Af Amer) 124.0 BUN/Creatinine Ratio 10.5 (10-20) Glucose 78 (70-99) mg/dl Lactate (0.4-2.0) mmol/L Calcium 8.3 L (8.5-10.1) mg/dl Phosphorus (2.5-4.9) mg/dl Magnesium 1.8 (1.8-2.4) mg/dl Total Bilirubin (0.2-1) mg/dl Direct Bilirubin (0-0.2) mg/dl AST (15-37) U/L ALT (12-78) U/L Alkaline Phosphatase (45-117) U/L Ammonia (11-32) umol/L Total Creatine Kinase (26-192) U/L Troponin I (0-0.045) ng/ml Total Protein (6.4-8.2) gm/dl Albumin (3.4-5.0) gm/dl Globulin (2.5-4.0) gm/dl Albumin/Globulin Ratio (0.9-2) Lipase (73-393) U/L TSH (0.300-4.500) uIu/ml Free T4 (0.8-1.6) ng/dl Prolactin ng/ml HCG, Qual (Negative) Urine Color Urine Appearance (Clear) Urine pH (4.5-7.5) Ur Specific [place] (1.000-1.030) Urine Protein (Negative) Urine Glucose (UA) (Negative) Urine Ketones (Negative) Urine Blood (Negative) Urine Nitrite (Negative) Urine Bilirubin (Negative) Urine Urobilinogen (Negative) Ur Leukocyte Esterase (Negative) Ethyl Alcohol mg/dL (0-3) mg/dl SARS-CoV-2 Ag (Rapid) Negative (Negative) 06/27/20 06/27/20 06/27/20 Range/Units 18:00 18:00 16:03 WBC (4.8-10.8) K/uL RBC (4.2-5.4) M/uL Hgb (12.0-16.0) g/dL Hct (37-47) % MCV (80-100) fL MCH (25-34) pg MCHC (32-36) g/dL RDW Std Deviation (36.4-46.3) fL RDW Coeff of Tino (11.5-14.5) % Plt Count (130-400) K/uL MPV (7.4-10.4) fL Immature Gran % (Auto) % Neut % (Auto) % Lymph % (Auto) % [place] % (Auto) % Eos % (Auto) % Baso % (Auto) % Neut # (Auto) (1.4-6.5) K/uL Lymph # (Auto) (1.2-3.4) K/uL [place] # (Auto) (0.11-0.59) K/uL Eos # (Auto) (0-0.5) K/uL Baso # (Auto) (0-0.2) K/uL Immature Gran # (Auto) (0.00-0.02) K/uL PT (9.0-12.0) Seconds INR (0.9-1.1) APTT (21.0-31.0) Seconds PTT Ratio Sodium 137 (136-145) mmol/L Potassium 3.1 L D (3.5-5.1) mmol/L Chloride 105 (98-107) mmol/L Carbon Dioxide 27 (21-32) mmol/L Anion Gap 5.0 (3-11) BUN 6 L (7-18) mg/dl Creatinine 0.37 L D (0.6-1.2) mg/dl Est Cr Clr Drug Dosing 152.8 ml/min Est GFR ( Amer) 138.5 Est GFR (Non-Af Amer) 119.5 BUN/Creatinine Ratio 15.4 (10-20) Glucose 98 (70-99) mg/dl Lactate 1.5 (0.4-2.0) mmol/L Calcium 8.0 L D (8.5-10.1) mg/dl Phosphorus (2.5-4.9) mg/dl Magnesium Cancelled 2.3 (1.8-2.4) mg/dl Total Bilirubin (0.2-1) mg/dl Direct Bilirubin (0-0.2) mg/dl AST (15-37) U/L ALT (12-78) U/L Alkaline Phosphatase (45-117) U/L Ammonia (11-32) umol/L Total Creatine Kinase (26-192) U/L Troponin I (0-0.045) ng/ml Total Protein (6.4-8.2) gm/dl Albumin (3.4-5.0) gm/dl Globulin (2.5-4.0) gm/dl Albumin/Globulin Ratio (0.9-2) Lipase (73-393) U/L TSH (0.300-4.500) uIu/ml Free T4 (0.8-1.6) ng/dl Prolactin ng/ml HCG, Qual (Negative) Urine Color Urine Appearance (Clear) Urine pH (4.5-7.5) Ur Specific [place] (1.000-1.030) Urine Protein (Negative) Urine Glucose (UA) (Negative) Urine Ketones (Negative) Urine Blood (Negative) Urine Nitrite (Negative) Urine Bilirubin (Negative) Urine Urobilinogen (Negative) Ur Leukocyte Esterase (Negative) Ethyl Alcohol mg/dL (0-3) mg/dl SARS-CoV-2 Ag (Rapid) (Negative) 06/27/20 06/27/20 06/27/20 Range/Units 14:55 14:42 13:14 WBC (4.8-10.8) K/uL RBC (4.2-5.4) M/uL Hgb (12.0-16.0) g/dL Hct (37-47) % MCV (80-100) fL MCH (25-34) pg MCHC (32-36) g/dL RDW Std Deviation (36.4-46.3) fL RDW Coeff of Tino (11.5-14.5) % Plt Count (130-400) K/uL MPV (7.4-10.4) fL Immature Gran % (Auto) % Neut % (Auto) % Lymph % (Auto) % [place] % (Auto) % Eos % (Auto) % Baso % (Auto) % Neut # (Auto) (1.4-6.5) K/uL Lymph # (Auto) (1.2-3.4) K/uL [place] # (Auto) (0.11-0.59) K/uL Eos # (Auto) (0-0.5) K/uL Baso # (Auto) (0-0.2) K/uL Immature Gran # (Auto) (0.00-0.02) K/uL PT (9.0-12.0) Seconds INR (0.9-1.1) APTT (21.0-31.0) Seconds PTT Ratio Sodium (136-145) mmol/L Potassium (3.5-5.1) mmol/L Chloride (98-107) mmol/L Carbon Dioxide (21-32) mmol/L Anion Gap (3-11) BUN (7-18) mg/dl Creatinine (0.6-1.2) mg/dl Est Cr Clr Drug Dosing ml/min Est GFR ( Amer) Est GFR (Non-Af Amer) BUN/Creatinine Ratio (10-20) Glucose (70-99) mg/dl Lactate (0.4-2.0) mmol/L Calcium (8.5-10.1) mg/dl Phosphorus (2.5-4.9) mg/dl Magnesium (1.8-2.4) mg/dl Total Bilirubin (0.2-1) mg/dl Direct Bilirubin (0-0.2) mg/dl AST (15-37) U/L ALT (12-78) U/L Alkaline Phosphatase (45-117) U/L Ammonia (11-32) umol/L Total Creatine Kinase (26-192) U/L Troponin I (0-0.045) ng/ml Total Protein (6.4-8.2) gm/dl Albumin (3.4-5.0) gm/dl Globulin (2.5-4.0) gm/dl Albumin/Globulin Ratio (0.9-2) Lipase (73-393) U/L TSH (0.300-4.500) uIu/ml Free T4 (0.8-1.6) ng/dl Prolactin 218.10 ng/ml HCG, Qual (Negative) Urine Color Yellow Urine Appearance Clear (Clear) Urine pH 6.5 (4.5-7.5) Ur Specific [place] 1.009 (1.000-1.030) Urine Protein Negative (Negative) Urine Glucose (UA) Negative (Negative) Urine Ketones Trace H (Negative) Urine Blood Negative (Negative) Urine Nitrite Negative (Negative) Urine Bilirubin Negative (Negative) Urine Urobilinogen Negative (Negative) Ur Leukocyte Esterase Negative (Negative) Ethyl Alcohol mg/dL < 3.0 (0-3) mg/dl SARS-CoV-2 Ag (Rapid) (Negative) 06/27/20 06/27/20 06/27/20 Range/Units 13:14 13:14 13:14 WBC (4.8-10.8) K/uL RBC (4.2-5.4) M/uL Hgb (12.0-16.0) g/dL Hct (37-47) % MCV (80-100) fL MCH (25-34) pg MCHC (32-36) g/dL RDW Std Deviation (36.4-46.3) fL RDW Coeff of Tino (11.5-14.5) % Plt Count (130-400) K/uL MPV (7.4-10.4) fL Immature Gran % (Auto) % Neut % (Auto) % Lymph % (Auto) % [place] % (Auto) % Eos % (Auto) % Baso % (Auto) % Neut # (Auto) (1.4-6.5) K/uL Lymph # (Auto) (1.2-3.4) K/uL [place] # (Auto) (0.11-0.59) K/uL Eos # (Auto) (0-0.5) K/uL Baso # (Auto) (0-0.2) K/uL Immature Gran # (Auto) (0.00-0.02) K/uL PT (9.0-12.0) Seconds INR (0.9-1.1) APTT (21.0-31.0) Seconds PTT Ratio Sodium (136-145) mmol/L Potassium (3.5-5.1) mmol/L Chloride (98-107) mmol/L Carbon Dioxide (21-32) mmol/L Anion Gap (3-11) BUN (7-18) mg/dl Creatinine (0.6-1.2) mg/dl Est Cr Clr Drug Dosing ml/min Est GFR ( Amer) Est GFR (Non-Af Amer) BUN/Creatinine Ratio (10-20) Glucose (70-99) mg/dl Lactate 5.6 H* (0.4-2.0) mmol/L Calcium (8.5-10.1) mg/dl Phosphorus (2.5-4.9) mg/dl Magnesium (1.8-2.4) mg/dl Total Bilirubin (0.2-1) mg/dl Direct Bilirubin (0-0.2) mg/dl AST (15-37) U/L ALT (12-78) U/L Alkaline Phosphatase (45-117) U/L Ammonia (11-32) umol/L Total Creatine Kinase 117 (26-192) U/L Troponin I (0-0.045) ng/ml Total Protein (6.4-8.2) gm/dl Albumin (3.4-5.0) gm/dl Globulin (2.5-4.0) gm/dl Albumin/Globulin Ratio (0.9-2) Lipase (73-393) U/L TSH (0.300-4.500) uIu/ml Free T4 (0.8-1.6) ng/dl Prolactin ng/ml HCG, Qual Negative (Negative) Urine Color Urine Appearance (Clear) Urine pH (4.5-7.5) Ur Specific [place] (1.000-1.030) Urine Protein (Negative) Urine Glucose (UA) (Negative) Urine Ketones (Negative) Urine Blood (Negative) Urine Nitrite (Negative) Urine Bilirubin (Negative) Urine Urobilinogen (Negative) Ur Leukocyte Esterase (Negative) Ethyl Alcohol mg/dL (0-3) mg/dl SARS-CoV-2 Ag (Rapid) (Negative) 06/27/20 06/27/20 06/27/20 Range/Units 13:14 13:14 13:14 WBC (4.8-10.8) K/uL RBC (4.2-5.4) M/uL Hgb (12.0-16.0) g/dL Hct (37-47) % MCV (80-100) fL MCH (25-34) pg MCHC (32-36) g/dL RDW Std Deviation (36.4-46.3) fL RDW Coeff of Tino (11.5-14.5) % Plt Count (130-400) K/uL MPV (7.4-10.4) fL Immature Gran % (Auto) % Neut % (Auto) % Lymph % (Auto) % [place] % (Auto) % Eos % (Auto) % Baso % (Auto) % Neut # (Auto) (1.4-6.5) K/uL Lymph # (Auto) (1.2-3.4) K/uL [place] # (Auto) (0.11-0.59) K/uL Eos # (Auto) (0-0.5) K/uL Baso # (Auto) (0-0.2) K/uL Immature Gran # (Auto) (0.00-0.02) K/uL PT 11.7 (9.0-12.0) Seconds INR 1.1 (0.9-1.1) APTT 24.5 (21.0-31.0) Seconds PTT Ratio 0.9 Sodium 132 L (136-145) mmol/L Potassium 2.6 L (3.5-5.1) mmol/L Chloride 97 L (98-107) mmol/L Carbon Dioxide 22 (21-32) mmol/L Anion Gap 13.0 H (3-11) BUN 10 (7-18) mg/dl Creatinine 0.81 (0.6-1.2) mg/dl Est Cr Clr Drug Dosing 69.8 ml/min Est GFR ( Amer) 94.1 Est GFR (Non-Af Amer) 81.2 BUN/Creatinine Ratio 12.5 (10-20) Glucose 101 H (70-99) mg/dl Lactate (0.4-2.0) mmol/L Calcium 9.5 (8.5-10.1) mg/dl Phosphorus 2.5 (2.5-4.9) mg/dl Magnesium 1.5 L (1.8-2.4) mg/dl Total Bilirubin 1.7 H (0.2-1) mg/dl Direct Bilirubin 0.5 H (0-0.2) mg/dl AST 48 H (15-37) U/L ALT 29 (12-78) U/L Alkaline Phosphatase 96 (45-117) U/L Ammonia 25.8 (11-32) umol/L Total Creatine Kinase 114 (26-192) U/L Troponin I < 0.015 (0-0.045) ng/ml Total Protein 8.0 (6.4-8.2) gm/dl Albumin 3.8 (3.4-5.0) gm/dl Globulin 4.2 H (2.5-4.0) gm/dl Albumin/Globulin Ratio 0.9 (0.9-2) Lipase 265 (73-393) U/L TSH 17.100 H (0.300-4.500) uIu/ml Free T4 1.00 (0.8-1.6) ng/dl Prolactin ng/ml HCG, Qual (Negative) Urine Color Urine Appearance (Clear) Urine pH (4.5-7.5) Ur Specific [place] (1.000-1.030) Urine Protein (Negative) Urine Glucose (UA) (Negative) Urine Ketones (Negative) Urine Blood (Negative) Urine Nitrite (Negative) Urine Bilirubin (Negative) Urine Urobilinogen (Negative) Ur Leukocyte Esterase (Negative) Ethyl Alcohol mg/dL (0-3) mg/dl SARS-CoV-2 Ag (Rapid) (Negative) 06/27/20 Range/Units 13:14 WBC 7.74 (4.8-10.8) K/uL RBC 3.81 L (4.2-5.4) M/uL Hgb 13.3 (12.0-16.0) g/dL Hct 39.3 (37-47) % MCV 103.1 H (80-100) fL MCH 34.9 H (25-34) pg MCHC 33.8 (32-36) g/dL RDW Std Deviation 53.4 H (36.4-46.3) fL RDW Coeff of Tino 14.2 (11.5-14.5) % Plt Count 135 (130-400) K/uL MPV 9.8 (7.4-10.4) fL Immature Gran % (Auto) 0.3 % Neut % (Auto) 71.9 % Lymph % (Auto) 21.4 % [place] % (Auto) 5.7 % Eos % (Auto) 0.6 % Baso % (Auto) 0.1 % Neut # (Auto) 5.56 (1.4-6.5) K/uL Lymph # (Auto) 1.66 (1.2-3.4) K/uL [place] # (Auto) 0.44 (0.11-0.59) K/uL Eos # (Auto) 0.05 (0-0.5) K/uL Baso # (Auto) 0.01 (0-0.2) K/uL Immature Gran # (Auto) 0.02 (0.00-0.02) K/uL PT (9.0-12.0) Seconds INR (0.9-1.1) APTT (21.0-31.0) Seconds PTT Ratio Sodium (136-145) mmol/L Potassium (3.5-5.1) mmol/L Chloride (98-107) mmol/L Carbon Dioxide (21-32) mmol/L Anion Gap (3-11) BUN (7-18) mg/dl Creatinine (0.6-1.2) mg/dl Est Cr Clr Drug Dosing ml/min Est GFR ( Amer) Est GFR (Non-Af Amer) BUN/Creatinine Ratio (10-20) Glucose (70-99) mg/dl Lactate (0.4-2.0) mmol/L Calcium (8.5-10.1) mg/dl Phosphorus (2.5-4.9) mg/dl Magnesium (1.8-2.4) mg/dl Total Bilirubin (0.2-1) mg/dl Direct Bilirubin (0-0.2) mg/dl AST (15-37) U/L ALT (12-78) U/L Alkaline Phosphatase (45-117) U/L Ammonia (11-32) umol/L Total Creatine Kinase (26-192) U/L Troponin I (0-0.045) ng/ml Total Protein (6.4-8.2) gm/dl Albumin (3.4-5.0) gm/dl Globulin (2.5-4.0) gm/dl Albumin/Globulin Ratio (0.9-2) Lipase (73-393) U/L TSH (0.300-4.500) uIu/ml Free T4 (0.8-1.6) ng/dl Prolactin ng/ml HCG, Qual (Negative) Urine Color Urine Appearance (Clear) Urine pH (4.5-7.5) Ur Specific [place] (1.000-1.030) Urine Protein (Negative) Urine Glucose (UA) (Negative) Urine Ketones (Negative) Urine Blood (Negative) Urine Nitrite (Negative) Urine Bilirubin (Negative) Urine Urobilinogen (Negative) Ur Leukocyte Esterase (Negative) Ethyl Alcohol mg/dL (0-3) mg/dl SARS-CoV-2 Ag (Rapid) (Negative) Medications Administered Current Inpatient Medications Acetaminophen (Acetaminophen 325 Mg Tab) 650 mg PO Q4H PRN PRN Reason: Pain or Fever Stop: 07/27/20 17:34 Cyanocobalamin (Cyanocobalamin 500 Mcg Tablet (Vitamin B-12)) 1,000 mcg PO DAILY [facility] Stop: 07/28/20 09:29 Enoxaparin Sodium (Enoxaparin Inj 40 Mg/0.4 Ml Syr) 40 mg SQ Q24H SARAH Stop: 07/27/20 17:59 Last Admin: 06/27/20 18:07 Dose: 40 mg Documented by: Folic Acid (Folic Acid 1 Mg Tab) 1 mg PO DAILY SARAH Stop: 07/28/20 08:59 Last Admin: 06/28/20 07:57 Dose: 1 mg Documented by: Gabapentin (Gabapentin 600 Mg Tab) 600 mg PO Q8H [facility] Stop: 06/29/20 06:01 Gabapentin (Gabapentin 600 Mg Tab) 600 mg PO Q12H SARAH Stop: 06/30/20 06:01 Gabapentin (Gabapentin 600 Mg Tab) 600 mg PO Q24H SARAH Stop: 07/01/20 06:01 Lorazepam (Ativan) 1 mg in 2 mls @ 2 mls/min IV UD PRN; Protocol PRN Reason: EtOH Withdrawl AWSS Score 6,7 Stop: 07/27/20 15:15 Lorazepam (Ativan) 2 mg in 4 mls @ 4 mls/min IV UD PRN; Protocol PRN Reason: EtOH Withdrawl AWSS Score 8,9 Stop: 07/27/20 15:15 Lorazepam (Ativan) 3 mg in 6 mls @ 4 mls/min IV ONCE PRN; Protocol PRN Reason: EtOH Withdrawl AWSS Score >=10 Stop: 07/27/20 15:15 Potassium Chloride 20 meq/ (Sodium Chloride) 1,010 mls @ 125 mls/hr IV .Q8H5M [facility] Stop: 06/28/20 09:44 Last Admin: 06/28/20 05:24 Dose: 125 mls/hr Documented by: Miscellaneous (Ativan Iv Alcohol Withdrawl) 1 ea IV UD PRN; Protocol PRN Reason: EtoH Withdrawal AWSS 6-10+ Stop: 07/27/20 15:15 Multivitamins (Multivitamin Tab) 1 tab PO DAILY [facility] Stop: 07/28/20 08:59 Last Admin: 06/28/20 07:56 Dose: 1 tab Documented by: Polyethylene Glycol (Polyethylene (Miralax) 17 Gm Pack) 17 gm PO DAILY PRN PRN Reason: Constipation Stop: 07/27/20 17:34 Thiamine HCl (Thiamine Hcl 100 Mg Tab) 100 mg PO QAM [facility] Stop: 07/27/20 17:34 Last Admin: 06/28/20 07:56 Dose: 100 mg Documented by:
[2020-06-28] MEDS ORDERED: GADOBUTROL 65ML VIAL IV ONE (10:49)
[2020-06-28] MEDS: CYANOCOBALAMIN 500 MCG TABLET (VITAMIN B-12) PO SCH (10:54)
--- NOTE | 2020-06-28 11:01 | Electrocardiogram Report ---
Test Reason : Blood Pressure : / mmHG Vent. Rate : 092 BPM Atrial Rate : 092 BPM P-R Int : 124 ms QRS Dur : 078 ms QT Int : 416 ms P-R-T Axes : 063 035 053 degrees QTc Int : 514 ms Normal sinus rhythm Prolonged QT Abnormal ECG When compared with ECG of 07-MAY-2001 19:17, QT has lengthened Confirmed by Errol Ziegler ([id number]) on 06/28/2020 11:01:23 AM Referred By: Confirmed By:Enzo Ziegler
--- NOTE | 2020-06-28 11:10 | Electrocardiogram Report ---
Test Reason : Blood Pressure : / mmHG Vent. Rate : 090 BPM Atrial Rate : 090 BPM P-R Int : 112 ms QRS Dur : 076 ms QT Int : 390 ms P-R-T Axes : 051 062 060 degrees QTc Int : 477 ms Normal sinus rhythm Normal ECG When compared with ECG of 27-JUN-2020 13:03, (unconfirmed) No significant change was found Confirmed by Errol Ziegler ([id number]) on 06/28/2020 11:09:47 AM Referred By: REFERRED SELF Confirmed By:Enzo Ziegler
--- NOTE | 2020-06-28 11:11 | Magnetic Resonance Report ---
MRI OF THE BRAIN WITHOUT AND WITH IV CONTRAST CLINICAL HISTORY: seizure POSSIBLE ALCOHOL WITHDRAWAL. COMPARISON STUDY: Noncontrast head CT dated 06/27/2020 TECHNIQUE: MRI of the brain was performed from the vertex to the skull base utilizing various T1 and T2 weighted sequences. Following the IV administration of 6.5 mL of Gadavist contrast, additional enh anced images were obtained. FINDINGS: Sagittal T1, axial diffusion, proton density and T2 weighted axial, coronal FLAIR, and pre and post a xial T1-weighted images were acquired. These were supplemented with post gadolinium coronal T1 weight ed images. No intra or extra-axial mass lesions are visualized. Axial diffusion-weighted images reveal no evidence of acute or subacute infarction. There is no evidence of ventricular dilatation. Proton density T2-weighted and FLAIR images reveal scattered foci of increased T2 signal within the w roscoe matter, likely on a small vessel basis. The hippocampal formations appear symmetric. There are no abnormal flow voids. There is a right frontal developmental venous anomaly. IMPRESSION: 1. No acute intracranial findings 2. No evidence of intracranial mass 2. No evidence of acute or subacute infarction 4. Incidental right frontal developmental venous anomaly. ACT 112: Negative or not required by law. Electronically signed by: Ministerio Hatch M.D. 06/28/2020 11:10 AM
--- NOTE | 2020-06-28 11:21 | Communication Note ---
Date of Service: June 28, 2020 Em is 54 years old is right-handed, and I have been asked to see her neurologic consultation today because of an ethanol withdrawal related seizure or a presumptive ethanol withdrawal related seizure. She and her both consume ethanol and have been doing so entire quantities lately due to the COVID-19 lockdown and her diet has probably not been the best. She became alarmed at the volume of alcohol about 3 days ago and decided to stop acutely and then became a little tremulous and little trouble walking yesterday and on the way back from [facility] to the [employer] store she apparently suddenly became unresponsive had seizure-like activity in the car with frothing at the mouth and was brought here immediately She has a chronic issue with alcohol use, hypertension, has inflammatory polyarthritis, and has apparently had some tremulousness when she stopped drinking in the past and in fact because of this apparently suggested to her hus band that she should taper down off the alcohol rather than stop acutely but nonetheless stopped acutely anyway Initial imaging studies of the brain suggested some white matter changes and hydrocephalus ex vacuo with atrophy An MRI has been done but the images are incomplete EEG is pending and probably will be done tomorrow Laboratory studies revealed hypomagnesemia lactic acidosis and hypokalemia all as outlined in chart She is being appropriately treated with the multivitamins including thiamine, has been given B12 and folic acid and is on the gabapentin protocol and the tremulousness that was noted on admission seems to have been improved she has not been hallucinating although she is anxious to be discharged Family history is noncontributory Social history reveals to be a daily consumer of ethanol and moderate to moderately high amounts with recent withdrawal, to be a smoker but not as use of illicit substances otherwise. She denies any weight loss fever sweats chills has not contracted Covid is no new issues referable to head eyes ears nose and throat, cardiovascular pulmonary gastrointestinal genitourinary musculoskeletal or dermatologic systems. From a neurologic point of view she feels that she may have had little balance issues recently but denies any numbness or tingling in her extremities no burning paresthesias of her feet no loss of taste or smell but has had some tremulousness in the past when she has stopped drinking for period of time is never had any full-blown delirium tremens or seizures to my knowledge Home medications include only B12 folate and multivitamins She denies any drug allergies other than to latex Neosporin and influenza vaccine Exam reveals her to be awake alert oriented in 3 spheres of blood pressure 123/79 pulse of 88 respirations 16 she is a temperature 37.6 O2 saturation 98%. She is oriented denies hallucinations does not appear to be agitated has no real tremor of the outstretched hands is good finger-nose [id number] testing good repetitive motor motions of the lower extremities including [id number] testing has normal reflexes downgoing toes no Sofie signs excellent strength and intact sensation to vibration light touch temperature and position I agree that the history certainly is supportive of alcohol withdrawal related seizures. At present she seems to be calm nonagitated nontremulous but she could go into full-blown delirium tremens and I think needs observed needs her electrolytes rebalanced and we need to review the results of the EEG and MRI before making the ultimate decision of not treating this as a primary seizure disorder which I doubt that it is Clearly if she has an abnormal EEG with potentially epileptogenic discharges and the ballgame changes a bit and we will probably put her on an agent such as Keppra but for now I agree with simply going through the gabapentin protocol observing her for another 24 to perhaps 48 hours depending on how she does discharging her back to her home. She probably will need alcohol counseling may need psychiatry to get involved and may need outpatient ethanol counseling but I do not think she is going to need neurologic follow-up on a chronic basis We will check back tomorrow review the MRI the EEG and make recommendations based on a more complete review of her record Omid Castellano MD
[2020-06-28] MEDS: ENOXAPARIN INJ 40 MG/0.4 ML SYR SQ SCH (18:36)
[2020-06-29 07:11] LABS: Hematocrit (blood only) 36.2 % (37-47); Hemoglobin 11.8 g/dL (12.0-16.0); Mean Corpuscular Hemoglobin 34.9 pg (25-34); Mean Corpuscular Hgb Conc 32.6 g/dL (32-36); Mean Corpuscular Volume 107.1 fL (80-100); Mean Platelet Volume 10.7 fL (7.4-10.4); Platelet Count 102 K/uL (130-400); RDW Coefficient of Variation 14.5 % (11.5-14.5); RDW Standard Deviation 55.9 fL (36.4-46.3); Red Blood Count 3.38 M/uL (4.2-5.4); White Blood Count 3.97 K/uL (4.8-10.8)
[2020-06-29 07:50] LABS: BUN Creatinine Ratio 9.7 (10-20); Calcium 8.8 mg/dl (8.5-10.1); Creatinine Clr Calc Pharmacy 115.4 ml/min; Est GFR (African American) 126.2; Est GFR (Non-African American) 108.9; Magnesium 1.7 mg/dl (1.8-2.4); Potassium 3.7 mmol/L (3.5-5.1)
[2020-06-29] MEDS: GABAPENTIN 600 MG TAB PO SCH ×2 (07:59→18:59)
[2020-06-29] MEDS: MULTIVITAMIN TAB PO SCH (09:20)
[2020-06-29] MEDS: FOLIC ACID 1 MG TAB PO SCH (09:20)
[2020-06-29] MEDS: CYANOCOBALAMIN 500 MCG TABLET (VITAMIN B-12) PO SCH (09:21)
[2020-06-29] MEDS: THIAMINE HCL 100 MG TAB PO SCH (09:22)
--- NOTE | 2020-06-29 12:27 | Hospitalist Progress Note ---
Date of Service June 29, 2020 Assessment & Plan (1) Alcohol withdrawal delirium, acute, hyperactive: (2) Alcohol withdrawal seizure: This is a 54yo F with a PMH of alcohol use disorder, HTN, inflammatory polyarthritis and other medical problems listed below who presents with AMS and possible seizure prior to arrival and was found to be in alcohol withdrawal. 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 Lactic acid elevated at 5.6. Prolactin elevated at 218, CK 117 -Improved after 2mg Ativan in ED. Given banana bag -AWSS protocol, gabapentin, active withdrawal ativan PRN per protocol -No seizure history -brain MRI w/wo ordered to r/o structural causes - No acute intracranial findings, No evidence of intracranial mass, No evidence of acute or subacute infarction, Incidental right frontal developmental venous anomaly. EEG ordered - plan for EEG today (06/29/2020) -Neurology consulted -Seizure precautions, monitor in PCU -Will notify DMV about seizure, pt not to drive for 6 months (3) Lactic acidosis: Initial lactic acid 5.6 in setting of likely alcohol withdrawal seizure - repeat lactic acid 1.5, received IVF (4) Hypomagnesemia: Initial magnesium 1.5 on admission - replete and monitor (5) Hypokalemia: Initial potassium 2.6 on admission - replete and monitor (6) Alcohol use disorder: History of significant alcohol use. Discharge planning in case patient interested in any rehabilitation (7) Hypertension: Normotensive. No longer taking home antihypertensive due to weight loss and normal blood pressure per home readings (8) Inflammatory polyarthritis: Previously on methotrexate but stopped medication a few months ago. Follows with [facility] DVT Ppx: SQ lovenox Code status: FULL PCP: Saleem Dispo: Admitted to PCU. Discharge planning ordered. Admission and Anticipated Discharge Date Admission Date: June 27, 2020 Subjective Pt seen in follow up of AMS, likely d/t etoh withdrawal seizure. Pt had an uneventful night, currently laying in bed in NAD. Reports no complaints at this time. MRI obtained - no acute/ subacute stroke, plan for EEG later today. Pt has Cardoso catheter now - plan to remove after EEG. Review of Systems Review of Systems: All systems reviewed & are unremarkable except as noted in HPI & below Constitutional: no fever and no chills Respiratory: no cough and no dyspnea Cardiovascular: no chest pain and no palpitations Gastrointestinal: no abdominal pain, no nausea and no vomiting Physical Exam Physical Exam: General Appearance: vitals as above, NAD, laying in bed, poorly groomed Head: normocephalic, atraumatic Eyes: normal inspection, PERRL, EOMI, conjunctivae normal, anicteric sclerae ENT: external ear and nose normal, oropharynx normal Neck: normal visual inspection, trachea midline, no thyromegaly Respiratory: normal respiratory effort, lungs clear to auscultation, no wheeze, rales, rhonchi. No accessory muscle use Cardiovascular: regular rate, rhythm, no murmur appreciated, normal peripheral pulses, no BLE edema. Vessels: no JVD Chest: normal inspection of chest Abdomen/GI: normal bowel sounds, soft, nontender Extremities/Musculoskeletal: no cyanosis or clubbing, extremities motor strength 5/5 Neurologic: PERRL, EOMI, no face palsy, no dysarthria, CN's II-XI intact bilaterally and moves all extremities Psychiatric: A+Ox4. Skin: no rashes, normal color, warm/dry Results & Data Results & Data ([facility]) Vital Signs (Past 12 Hours) Vital Signs Temp Pulse Pulse Resp BP Pulse Ox 06/29/20 12:23 36.9 C 20 127/82 97 06/29/20 08:32 69 06/29/20 08:03 37.4 C 87 20 116/74 99 06/29/20 04:05 36.8 C 63 16 125/76 99 Laboratory Results 06/29/20 06/29/20 Range/Units 06:08 06:08 WBC 3.97 L (4.8-10.8) K/uL RBC 3.38 L (4.2-5.4) M/uL Hgb 11.8 L (12.0-16.0) g/dL Hct 36.2 L (37-47) % MCV 107.1 H (80-100) fL MCH 34.9 H (25-34) pg MCHC 32.6 (32-36) g/dL RDW Std Deviation 55.9 H (36.4-46.3) fL RDW Coeff of Tino 14.5 (11.5-14.5) % Plt Count 102 L (130-400) K/uL MPV 10.7 H (7.4-10.4) fL Sodium 139 (136-145) mmol/L Potassium 3.7 (3.5-5.1) mmol/L Chloride 107 (98-107) mmol/L Carbon Dioxide 27 (21-32) mmol/L Anion Gap 5.0 (3-11) BUN 5 L (7-18) mg/dl Creatinine 0.49 L (0.6-1.2) mg/dl Est Cr Clr Drug Dosing 115.4 ml/min Est GFR ( Amer) 126.2 Est GFR (Non-Af Amer) 108.9 BUN/Creatinine Ratio 9.7 L (10-20) Glucose 87 (70-99) mg/dl Calcium 8.8 (8.5-10.1) mg/dl Magnesium 1.7 L (1.8-2.4) mg/dl Medications Administered Current Inpatient Medications Acetaminophen (Acetaminophen 325 Mg Tab) 650 mg PO Q4H PRN PRN Reason: Pain or Fever Stop: 07/27/20 17:34 Cyanocobalamin (Cyanocobalamin 500 Mcg Tablet (Vitamin B-12)) 1,000 mcg PO DAILY [facility] Stop: 07/28/20 09:29 Last Admin: 06/29/20 09:21 Dose: 1,000 mcg Documented by: Enoxaparin Sodium (Enoxaparin Inj 40 Mg/0.4 Ml Syr) 40 mg SQ Q24H [facility] Stop: 07/27/20 17:59 Last Admin: 06/28/20 18:36 Dose: 40 mg Documented by: Folic Acid (Folic Acid 1 Mg Tab) 1 mg PO DAILY [facility] Stop: 07/28/20 08:59 Last Admin: 06/29/20 09:20 Dose: 1 mg Documented by: Gabapentin (Gabapentin 600 Mg Tab) 600 mg PO Q12H [facility] Stop: 06/30/20 06:01 Gabapentin (Gabapentin 600 Mg Tab) 600 mg PO Q24H [facility] Stop: 07/01/20 06:01 Lorazepam (Ativan) 1 mg in 2 mls @ 2 mls/min IV UD PRN; Protocol PRN Reason: EtOH Withdrawl AWSS Score 6,7 Stop: 07/27/20 15:15 Lorazepam (Ativan) 2 mg in 4 mls @ 4 mls/min IV UD PRN; Protocol PRN Reason: EtOH Withdrawl AWSS Score 8,9 Stop: 07/27/20 15:15 Lorazepam (Ativan) 3 mg in 6 mls @ 4 mls/min IV ONCE PRN; Protocol PRN Reason: EtOH Withdrawl AWSS Score >=10 Stop: 07/27/20 15:15 Magnesium Sulfate/Dextrose (Magnesium Sulfate / D5w) 1 gm in 100 mls @ 50 mls/hr IV ONE ONE Stop: 06/29/20 14:30 Miscellaneous (Ativan Iv Alcohol Withdrawl) 1 ea IV UD PRN; Protocol PRN Reason: EtoH Withdrawal AWSS 6-10+ Stop: 07/27/20 15:15 Multivitamins (Multivitamin Tab) 1 tab PO DAILY [facility] Stop: 07/28/20 08:59 Last Admin: 06/29/20 09:20 Dose: 1 tab Documented by: Polyethylene Glycol (Polyethylene (Miralax) 17 Gm Pack) 17 gm PO DAILY PRN PRN Reason: Constipation Stop: 07/27/20 17:34 Potassium Chloride (Potassium Chloride Crtab 20 Meq Tabcr) 40 meq PO NOW STA Stop: 06/29/20 12:32 Thiamine HCl (Thiamine Hcl 100 Mg Tab) 100 mg PO QAM [facility] Stop: 07/27/20 17:34 Last Admin: 06/29/20 09:22 Dose: 100 mg Documented by:
[2020-06-29] MEDS ORDERED: POTASSIUM CHLORIDE CRTAB 20 MEQ TABCR PO STA (12:33)
[2020-06-29] MEDS ORDERED: MAGNESIUM SULFATE / D5W 1 GM/100 ML BAG IV ONE (12:45)
--- NOTE | 2020-06-29 16:23 | Communication Note ---
Date of Service: June 29, 2020 I saw Em today and am pleased to report that she is awake alert oriented does not demonstrate any tremulousness denies any hallucinations has a pulse rate of 75 respirations 20 normal temperature normal O2 saturations and her laboratory studies are somewhat better but her magnesium still little low potassium is up to normal and her hemogram still shows evidence for ethanol induced anemia with macrocytosis. She has not had any liver functions tests done or any ammonia level I do not think these are essential at this point as I do not doubt she has some element of alcoholic liver disease but she certainly has other issues would be ethanol related Unfortunately could not do an EEG today as she has a complex therapies in place that would require removal and unfortunately we could not get a tracing as the impedance levels would have been prohibitive the test been unreliable MRI scan of the brain shows some global atrophy some white matter changes but certainly nothing that would cause seizures In this setting I have no doubt that this was an ethanol withdrawal seizure occurring 3 days after acute cessation of all ethanol intake with a normal ethanol level and with clinical picture that certainly was reminiscent of early delirium tremens She will need to have an EEG done on an outpatient basis to be certain there is no underlying potentially epileptogenic activity and will need a neurologic follow-up The decision about whether she can return home is going to be made by her current attending physician based on her review of the metabolic studies and overall clinical condition Whether or not she sees psychiatry and/or attends outpatient counseling is something that is going to have to be offered to her by her general physician as in this setting of COVID-19 pandemic I am not sure we can justify keeping her in the hospital for other than an acute medical illness She obviously needs some form of intervention as the laboratory studies we do have already indicate significant organ damage due to ethanol i.e. the hemogram and probably the degree of cerebral atrophy. As pointed out above we do not know the level of actual hepatocellular injury that has been accumulating over the years nor do we know she might not have an underlying chronic ethanol related pancreatitis Neurology is going to sign off at this point we will be making arrangements for an outpatient EEG to be done at [facility]. She promises to get her hair issues straightened out so we get a reasonable scalp recording. She does not need an ambulatory study but a routine EEG certainly would suffice Omid Castellano MD
[2020-06-29] MEDS: ENOXAPARIN INJ 40 MG/0.4 ML SYR SQ SCH (18:59)
[2020-06-30] MEDS: GABAPENTIN 600 MG TAB PO SCH (05:51)
[2020-06-30] MEDS: THIAMINE HCL 100 MG TAB PO SCH (08:54)
[2020-06-30] MEDS: FOLIC ACID 1 MG TAB PO SCH (08:54)
[2020-06-30] MEDS: CYANOCOBALAMIN 500 MCG TABLET (VITAMIN B-12) PO SCH (08:54)
[2020-06-30] MEDS: MULTIVITAMIN TAB PO SCH (08:54)
--- NOTE | 2020-06-30 09:32 | Hospitalist Progress Note ---
Date of Service June 30, 2020 Assessment & Plan (1) Alcohol withdrawal delirium, acute, hyperactive: (2) Alcohol withdrawal seizure: This is a 54yo F with a PMH of alcohol use disorder, HTN, inflammatory polyarthritis and other medical problems listed below who presents with AMS and possible seizure prior to arrival and was found to be in alcohol withdrawal. 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 Lactic acid elevated at 5.6. Prolactin elevated at 218, CK 117 -Improved after 2mg Ativan in ED. Given banana bag -AWSS protocol, gabapentin, active withdrawal ativan PRN per protocol -No seizure history -brain MRI w/wo ordered to r/o structural causes - No acute intracranial findings, No evidence of intracranial mass, No evidence of acute or subacute infarction, Incidental right frontal developmental venous anomaly. EEG ordered - however pt could not get done as her hair was too tangled up, pt did not want nursing staff to help untangle it while here. Plan for EEG as outpt. -Neurology consulted -Seizure precautions, monitored in PCU Notified DMV about seizure, pt not to drive for 6 months (3) Lactic acidosis: Initial lactic acid 5.6 in setting of likely alcohol withdrawal seizure - repeat lactic acid 1.5, received IVF (4) Hypomagnesemia: Initial magnesium 1.5 on admission - replete and monitor (5) Hypokalemia: Initial potassium 2.6 on admission - replete and monitor (6) Alcohol use disorder: History of significant alcohol use. Discharge planning in case patient interested in any rehabilitation - pt is not interested at this time, will follow up w/ PCP (7) Hypertension: Normotensive. No longer taking home antihypertensive due to weight loss and normal blood pressure per home readings Anemia - macrocytic - stable at this time - likely secondary to alcohol use, no signs of bleeding - cont. folic acid and B12 vitamin, follow up as outpt Elevated TSH - recommend to repeat TSH as outpt (8) Inflammatory polyarthritis: Previously on methotrexate but stopped medication a few months ago. Follows with [facility] DVT Ppx: SQ lovenox Code status: FULL PCP: Saleem Dispo: Admitted to PCU. Now plan to DC home and PCP follow up. EEG as outpt. Admission and Anticipated Discharge Date Admission Date: June 27, 2020 Subjective Pt seen in follow up of AMS, likely d/t etoh withdrawal seizure. Pt had an uneventful night, currently laying in bed in NAD. Reports no complaints at this time. MRI obtained - no acute/ subacute stroke, EEG could not be obtained d/t pt's hair being tangled. Plan for outpt EEG. Review of Systems Review of Systems: All systems reviewed & are unremarkable except as noted in HPI & below Constitutional: no fever and no chills Respiratory: no cough and no dyspnea Cardiovascular: no chest pain and no palpitations Gastrointestinal: no abdominal pain, no nausea and no vomiting Neurologic: no tremor(s), no seizure-like activity, no dizziness, no headache(s) and no abnormal speech Physical Exam Physical Exam: General Appearance: vitals as above, NAD, laying in bed, poorly groomed Head: normocephalic, atraumatic Eyes: normal inspection, PERRL, EOMI, conjunctivae normal, anicteric sclerae ENT: external ear and nose normal, oropharynx normal Neck: normal visual inspection, trachea midline, no thyromegaly Respiratory: normal respiratory effort, lungs clear to auscultation, no wheeze, rales, rhonchi. No accessory muscle use Cardiovascular: regular rate, rhythm, no murmur appreciated, normal peripheral pulses, no BLE edema. Vessels: no JVD Chest: normal inspection of chest Abdomen/GI: normal bowel sounds, soft, nontender Extremities/Musculoskeletal: no cyanosis or clubbing, extremities motor strength 5/5 Neurologic: PERRL, EOMI, no face palsy, no dysarthria, CN's II-XI intact bila terally and moves all extremities Psychiatric: A+Ox4. Skin: no rashes, normal color, warm/dry Results & Data Results & Data ([facility]) Vital Signs (Past 12 Hours) Vital Signs Temp Pulse Pulse Resp BP Pulse Ox 06/30/20 08:01 37.3 C 98 H 20 132/85 100 06/30/20 04:00 37.0 C 77 17 115/73 99 06/29/20 23:44 37.2 C 67 18 112/68 98 06/29/20 23:00 79 Laboratory Results 06/30/20 Range/Units 09:48 Sodium 138 (136-145) mmol/L Potassium 4.0 (3.5-5.1) mmol/L Chloride 106 (98-107) mmol/L Carbon Dioxide 26 (21-32) mmol/L Anion Gap 6.0 (3-11) BUN 7 (7-18) mg/dl Creatinine 0.55 L (0.6-1.2) mg/dl Est Cr Clr Drug Dosing 102.8 ml/min Est GFR ( Amer) 121.5 Est GFR (Non-Af Amer) 104.9 BUN/Creatinine Ratio 12.4 (10-20) Glucose 105 H (70-99) mg/dl Calcium 9.2 (8.5-10.1) mg/dl Phosphorus 3.5 (2.5-4.9) mg/dl Magnesium 1.9 (1.8-2.4) mg/dl
[2020-06-30] MEDS ORDERED: MAGNESIUM SULFATE / D5W 1 GM/100 ML BAG IV ONE (10:00)
[2020-06-30 10:24] LABS: BUN Creatinine Ratio 12.4 (10-20); Calcium 9.2 mg/dl (8.5-10.1); Creatinine Clr Calc Pharmacy 102.8 ml/min; Est GFR (African American) 121.5; Est GFR (Non-African American) 104.9; Magnesium 1.9 mg/dl (1.8-2.4)
[2020-06-30 10:25] LABS: Phosphorus 3.5 mg/dl (2.5-4.9)
--- NOTE | 2020-06-30 12:52 | Discharge Summary ---
Date of Service June 30, 2020 Admission HPI Per Admitting Provider This is a 54yo F with a PMH of alcohol use disorder, HTN, inflammatory polyarthritis and other medical problems listed below who presents with AMS and possible seizure prior to arrival. Patient was in normal state of health today and last remembers stumbling going down front steps on the way to doing errands. While in the car with running errands, patient became unresponsive and noticed foaming at the mouth. Afterwards, patient was confused and combative. He was concern for stroke and brought her to ED for further evaluation. Patient drinks a significant amount, endorsing 3 large vodka drinks each night. Has not had anything to drink for 3 days due to trying to cut back. Does admit to tremoring if she does not drink alcohol. Denies any history of alcohol withdrawal seizures or delirium. No history of epilepsy. Is only taking in a multivitamin at home in terms of medication. Denies any fever, chills, lightheadedness, headache, chest pain, palpitations, shortness of breath, nausea, vomiting, abdominal pain, dysuria or diarrhea. Has been constipated lately. States her p.o. intake is small. Endorses losing approximately 80 pounds over the past few years. Admission Exam Per Admitting Provider General Appearance: vitals as above, NAD, sitting up in bed, pleasant but easily distracted, poorly groomed, fine tremors in hands Head: normocephalic, atraumatic Eyes: normal inspection, PERRL, conjunctivae normal, anicteric sclerae ENT: external ear and nose normal, oropharynx normal Neck: normal visual inspection, trachea midline, no thyromegaly Respiratory: normal respiratory effort, lungs clear to auscultation, no wheeze, rales, rhonchi. No accessory muscle use Cardiovascular: regular rate, rhythm, no murmur appreciated, normal peripheral pulses, no BLE edema. Vessels: no JVD Chest: normal inspection of chest Abdomen/GI: normal bowel sounds, soft, nontender, no hepatosplenomegaly Extremities/Musculoskeletal: no cyanosis or clubbing, extremities motor strength 5/5 Neurologic: PERRL, EOMI, accommodation nl, no face palsy, no dysarthria, CN's II-XI intact bilaterally and moves all extremities Psychiatric: A+Ox4. Easily distracted but redirects Skin: no rashes, normal color, warm/dry Principal Diagnosis Seizure secondary to alcohol withdrawal Hypokalemia Hypomagnesemia Macrocytic anemia Elevated TSH Discharge Exam General Appearance: vitals as above, NAD, laying in bed, poorly groomed Head: normocephalic, atraumatic Eyes: normal inspection, PERRL, EOMI, conjunctivae normal, anicteric sclerae ENT: external ear and nose normal, oropharynx normal Neck: normal visual inspection, trachea midline, no thyromegaly Respiratory: normal respiratory effort, lungs clear to auscultation, no wheeze, rales, rhonchi. No accessory muscle use Cardiovascular: regular rate, rhythm, no murmur appreciated, normal peripheral pulses, no BLE edema. Vessels: no JVD Chest: normal inspection of chest Abdomen/GI: normal bowel sounds, soft, nontender Extremities/Musculoskeletal: no cyanosis or clubbing, extremities motor strength 5/5 Neurologic: PERRL, EOMI, no face palsy, no dysarthria, CN's II-XI intact bilaterally and moves all extremities Psychiatric: A+Ox4. Skin: no rashes, normal color, warm/dry Discharge Data Allergies Allergy/AdvReac Type Severity Reaction Status Date / Time Influenza Virus Vaccines Allergy Severe Hives Verified 06/27/20 14:20 latex Allergy Intermediate rash/hives Unverified 06/27/20 14:20 NEOSPORIN AdvReac Severe Hives Uncoded 06/27/20 14:20 Consultations 06/27/20 14:20 ED Decision to Admit Stat 06/27/20 17:35 Consult Case Management - Discharge Planning Routine Consult Neurology Routine Ordered Studies 06/27/20 13:05 CT head/brain wo con Stat IMPRESSION: No acute intracranial abnormality or calvarial fracture. 06/27/20 17:35 MR brain wo/w con Routine IMPRESSION: 1. No acute intracranial findings 2. No evidence of intracranial mass 2. No evidence of acute or subacute infarction 4. Incidental right frontal developmental venous anomaly. Hospital Course (1) Alcohol withdrawal delirium, acute, hyperactive: (2) Alcohol withdrawal seizure: This is a 54yo F with a PMH of alcohol use disorder, HTN, inflammatory polyarthritis and other medical problems listed below who presents with AMS and possible seizure prior to arrival and was found to be in alcohol withdrawal. 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 Lactic acid elevated at 5.6. Prolactin elevated at 218, CK 117 -Improved after 2mg Ativan in ED. Given banana bag -AWSS protocol, gabapentin, active withdrawal ativan PRN per protocol -No seizure history -brain MRI w/wo ordered to r/o structural causes - No acute intracranial findings, No evidence of intracranial mass, No evidence of acute or subacute infarction, Incidental right frontal developmental venous anomaly. EEG ordered - however pt could not get done as her hair was too tangled up, pt did not want nursing staff to help untangle it while here. Plan for EEG as outpt. -Neurology consulted -Seizure precautions, monitored in PCU Notified DMV about seizure, pt not to drive for 6 months (3) Lactic acidosis: Initial lactic acid 5.6 in setting of likely alcohol withdrawal seizure - repeat lactic acid 1.5, received IVF (4) Hypomagnesemia: Initial magnesium 1.5 on admission - replete and monitor (5) Hypokalemia: Initial potassium 2.6 on admission - replete and monitor (6) Alcohol use disorder: History of significant alcohol use. Discharge planning in case patient interested in any rehabilitation - pt is not interested at this time, will follow up w/ PCP (7) Hypertension: Normotensive. No longer taking home antihypertensive due to weight loss and normal blood pressure per home readings Anemia - macrocytic - stable at this time - likely secondary to alcohol use, no signs of bleeding - cont. folic acid and B12 vitamin, follow up as outpt Elevated TSH - recommend to repeat TSH as outpt (8) Inflammatory polyarthritis: Previously on methotrexate but stopped medication a few months ago. Follows with [facility] rheum PCP: Dr. Monge Dispo: Admitted to PCU. Now plan to DC home and PCP follow up. EEG as outpt. Total Time Total Time Spent Total Time Spent (In Minutes): 35 Total Time Includes: Examination of the Patient, Discharge Planning, Medication Reconciliation and Communication With Other Providers Discharge Plan Discharge Items Patient Disposition: Home - Self-Care Reason For Visit: ETOH WITHDRAWAL SEIZURE Discharge Diagnosis: Seizure secondary to alcohol withdrawal Hypokalemia Hypomagnesemia Macrocytic anemia Elevated TSH Activity: Per Instructions section Non-emergency contact: Primary Care Provider Call non-emergency contact if: you have any medication questions and your symptoms worsen Follow-up/Referrals: Elio Monge DO [Primary Care Provider] - (Date & Time 07/06/2020 11:00 AM Provider Elio Monge DO Department Family [facility] ) Diet: Regular Addtl Attending Provider Instructions: Follow up with with your primary care doctor within 1 week. The appointment was scheduled for you for 07/06/2020. Continue taking vitamins as prescribed - thiamine, folic acid, vitamine B12. It is crucial that you completely abstain from alcohol. Pending Studies at Discharge: No Stand-Alone Forms: My [facility] [place], Smoking Cessation Medications and DC Order Prescriptions: New thiamine HCl (vitamin B1) [Vitamin B-1] 100 mg Tablet 100 mg PO QAM Qty: 30 RF: 0 Continued multivitamin Tablet 1 tab PO DAILY RF: 0 cyanocobalamin (vitamin B-12) 100 mcg Tablet 100 mcg PO DAILY RF: 0 folic acid 1 mg Tablet 1 mg PO DAILY RF: 0 Discharge Orders: Discharge Order (Routine); Ordered 06/30/20 Ordered By: Feliberto Clark Admission Data Admit Date/Time: 06/27/20 14:55 Attending Provider: Feliberto Clark Admit Provider: Feliberto Clark Primary Care Provider: Elio Monge Other Providers: Feliberto Clark ; Omid Castellano
[2020-07-01] MEDS ORDERED: GABAPENTIN 600 MG TAB PO SCH (06:00)
== END 2020-06-30 16:19 | disposition home or self-care (01) | DRG 897 ==
LOC: ED 12:40 → 2S 14:55